=== PATIENT | female | born 1950 | race Caucasian/White ===

== ENCOUNTER → 2016-11-14 | Outpatient (CLI) | payer BC ==
--- NOTE | 2016-11-14 10:40 | DIAGNOSTIC IMAGING REPORT ---
PROCEDURE: DEXA BONE DENSITY STUDY CLINICAL INDICATION: Screening, personal history of adult fractures, family history of hip fracture, taking vitamin D supplementation. COMPARISON: None. FINDINGS: LUMBAR SPINE: Bone mineral density 0.892 g/cm2, T score -1.4, osteopenia . LEFT HIP: Bone mineral density 0.868 g/cm2, T score -0.6, normal . LEFT FEMORAL NECK: Bone mineral density 0.626 g/cm2, T score -2.0, osteopenia . FRACTURE RISK CALCULATION ( when applicable): 10-year fracture risk of a major osteoporotic fracture 28% and of a hip fracture 2.1%. (T score greater or equal to -1.0 to: NORMAL) (T score from -1.1 to -2.4: OSTEOPENIA) (T score ess than or equal to -2.5: OSTEOPOROSIS) IMPRESSION: 1. Osteopenia elevates the patient's risk of fracture as described.
--- NOTE | 2016-11-14 11:09 | DIAGNOSTIC IMAGING REPORT ---
PROCEDURE: MG BILATERAL SCREENING W/CAD INDICATION: Screening. New baseline. TECHNIQUE: Bilateral CC and MLO digital views. COMPARISON: None. FINDINGS: Computer-aided detection applied. Mildly dense parenchymal pattern. No evidence of mass or suspicious calcification. IMPRESSION: 1. Negative mammogram RESULT CODE: 1- Negative. A. A negative report should not delay biopsy if a dominant or clinically suspicious mass is present. 10-15% of cancers are not identified by x-ray. B. A negative report may reinforce clinical impression. C. Adenosis and dense breasts may obscure an underlying neoplasm. D. False positive reports average 6-10%. E.. A yearly screening mammogram is recommended. A reminder letter will be scheduled.
== END ==
LOC: MAM SRH 11-08 11:00 → XR SRH 11-08 11:45 → MAM SRH 09:10
DX: M85.80 Other specified disorders of bone density and structure, unspecified site (principal); Z12.31 Encounter for screening mammogram for malignant neoplasm of breast